=== PATIENT | female | born 2000 | race Caucasian/White ===

== ENCOUNTER 2024-04-20 13:40 | Day surgery (SDC) | payer OTHER ==
[2024-04-20] MEDS ORDERED: hydrALAZINE 20 MG/ML VIAL SLOW IVP PRN (14:05)
[2024-04-20 14:44] VITALS: BMI 21.1
== END 2024-04-20 15:20 | disposition home or self-care (01) ==
LOC: CSHLD/OP 13:40
PROVIDERS: ATTEND Obstetrics & Gynecology
DX: O36.8120 Decreased fetal movements, second trimester, not applicable or unspecified (principal); O98.812 Other maternal infectious and parasitic diseases complicating pregnancy, second trimester; A74.9 Chlamydial infection, unspecified; O98.312 Other infections with a predominantly sexual mode of transmission complicating pregnancy, second trimester; A63.0 Anogenital (venereal) warts; O99.342 Other mental disorders complicating pregnancy, second trimester; F32.9 Major depressive disorder, single episode, unspecified; F41.1 Generalized anxiety disorder; Z67.90 Unspecified blood type, Rh positive; Z79.82 Long term (current) use of aspirin; Z79.899 Other long term (current) drug therapy; Z3A.27 27 weeks gestation of pregnancy
CPT/HCPCS: 76819; 99281

== ENCOUNTER 2024-06-29 22:48 | Inpatient (IN) | payer OTHER ==
[2024-06-29 23:14] VITALS: BMI 22.3
[2024-06-29] MEDS ORDERED: Misoprostol 200 MCG TAB PR PRN (23:20)
[2024-06-29] MEDS ORDERED: Carboprost 250 MCG/ML AMP IM PRN (23:20)
[2024-06-29] MEDS ORDERED: Tranexamic Acid 1,000 MG/10 ML VIAL IVP PRN (23:20)
[2024-06-29] MEDS ORDERED: Ondansetron PF 4 MG/2 ML Vial IVP PRN (23:20)
[2024-06-29] MEDS ORDERED: Promethazine HCl 25 MG/ML VIAL IM PRN (23:20)
[2024-06-29] MEDS ORDERED: Lidocaine 1% (PF) 30 ML VIAL SC PRN (23:20)
[2024-06-29] MEDS ORDERED: Methylergonovine 0.2 MG/ML VIAL IM PRN (23:20)
[2024-06-29] MEDS ORDERED: hydrALAZINE 20 MG/ML VIAL SLOW IVP PRN (23:20)
[2024-06-29] MEDS ORDERED: Diphenoxylate HCl/Atropine Tablet PO PRN ×2 (23:20)
[2024-06-29] MEDS ORDERED: Oxytocin 30 units/NS 500 ML 500 ML IV SCH (23:30)
[2024-06-29] MEDS ORDERED: Oxytocin 10 UNITS/ML VIAL ONE (23:33)
[2024-06-29] MEDS ORDERED: Lidocaine 1% (PF) 30 ML VIAL ONE (23:33)
[2024-06-29 23:50] LABS: Hematocrit 35.3 % (34.9-44.5); Hemoglobin 12.5 g/dL (12.0-15.5); Mean Corpuscular HGB CONC 35.4 g/dL (32.0-36.0); Mean Corpuscular Hemoglobin 31.3 pg (27.0-33.0); Mean Corpuscular Volume 88.5 fL (81.6-98.3); Mean Platelet Volume 11.2 fL (7.4-10.4); Platelet Count 150 10x3/uL (150-450); RBC Distribution Width 13.2 % (11.5-14.5); Red Blood Cell (RBC) Count 3.99 10x6/uL (3.90-5.03); White Blood Cell (WBC) Count 12.1 10x3/uL (3.5-10.5)
[2024-06-30 00:23] LABS: HBsAg Index 0.19 S/CO (0-0.99); Hep B Surf Ag - L&D Non-Reactive S/CO (NonReactive)
[2024-06-30 00:24] LABS: Syphilis Antibody Nonreactive (Nonreactive); Syphilis Antibody Index 0.05 S/CO (<1.00 Non-Reactive)
[2024-06-30] MEDS: Ibuprofen 800 MG TAB PO PRN (01:25)
[2024-06-30] MEDS ORDERED: Ibuprofen 800 MG TAB PO SCH (01:30)
[2024-06-30] MEDS ORDERED: Benzocaine-Menthol 82.5 ML CAN TOP PRN (03:07)
[2024-06-30] MEDS ORDERED: Preparation H Ointment 28 GM TUBE PR PRN (03:07)
[2024-06-30] MEDS ORDERED: Milk Of Magnesia 30 ML UDCUP PO PRN (03:07)
[2024-06-30] MEDS ORDERED: Lanolin Ointment 7 GM TUBE TOP PRN (03:07)
[2024-06-30] MEDS ORDERED: Bisacodyl 10 MG SUPP PR PRN (03:07)
[2024-06-30] MEDS ORDERED: diphenhydrAMINE 25 MG CAP PO PRN (03:07)
[2024-06-30] MEDS: Acetaminophen 325 MG TAB PO PRN (06:06)
[2024-06-30] MEDS: Ibuprofen 800 MG TAB PO SCH (08:57)
[2024-06-30] MEDS: Docusate 100 MG CAP PO SCH (08:57)
[2024-06-30] MEDS: Prenatal Vitamin 1 TAB PO SCH (08:57)
[2024-06-30] MEDS: Ferrous Sulfate 325 MG TAB PO SCH (08:57)
[2024-07-01 01:08] VITALS: BP 106/56; TEMP 97.8
== END 2024-07-01 16:00 | disposition home or self-care (01) | DRG 807 ==
LOC: CSHLD/OP 22:48 → CSHLD 23:26 → CSHPP 06-30 02:55
PROVIDERS: ADMIT Family Medicine; ATTEND Obstetrics & Gynecology
PROC: 10E0XZZ Delivery of Products of Conception, External Approach (ICD-10-PCS; principal; 2024-06-30)
DX: O42.02 Full-term premature rupture of membranes, onset of labor within 24 hours of rupture (principal); Z37.0 Single live birth; Z3A.37 37 weeks gestation of pregnancy; O26.893 Other specified pregnancy related conditions, third trimester; Z67.11 Type A blood, Rh negative; O99.892 Other specified diseases and conditions complicating childbirth; R00.0 Tachycardia, unspecified; O99.344 Other mental disorders complicating childbirth; F41.1 Generalized anxiety disorder; F32.9 Major depressive disorder, single episode, unspecified; O99.02 Anemia complicating childbirth
CPT/HCPCS: 85027; 85461; 86780; 86850; 86870; 86900; 86901; 86922; 87340; 90384; 96372; 99285